=== PATIENT | female | born 1995 | race Caucasian/White ===

== ENCOUNTER 2022-12-25 22:23 | Emergency (ER) | payer OTHER ==
[2022-12-25] MEDS ORDERED: HYDROCODONE/APAP 10/325 TAB ONE (23:22)
[2022-12-25] MEDS ORDERED: IBUPROFEN 400 MG TAB ONE (23:22)
[2022-12-26] MEDS ORDERED: MORPHINE 2 MG/ML SYR ONE (00:25)
[2022-12-26] MEDS ORDERED: MORPHINE 4 MG/ML SYR ONE (00:26)
--- NOTE | 2022-12-26 00:50 | ER ---
Nurse's Notes [facility] Name: Laverne Mueller Age: 27 yrs Sex: Female : 1995 Arrival Date: 12/25/2022 Time: 22:23 Bed 4 Private MD: Diagnosis: Pain in right leg;Pain in right ankle and joints of right foot Presentation: 12/25 22:58 Chief complaint: Patient states: I have a metal plate in my right leg that was placed 6 kd3 years ago. Last night it started to hurt and has progressively gotten worse and gone up my leg to my right thigh. I do not think i have injured it in any way. Coronavirus screen: Vaccine status: Patient reports receiving the 2nd dose of the covid vaccine. Ebola Screen: No symptoms or risks identified at this time. Initial Sepsis Screen: Does the patient meet any 2 criteria? No. Patient's initial sepsis screen is negative. Does the patient have a suspected source of infection? No. Patient's initial sepsis screen is negative. Risk Assessment: Do you want to hurt yourself or someone else? Patient reports no desire to harm self or others. Onset of symptoms was December 25, 2022. 22:58 Method Of Arrival: Wheelchair kd3 22:58 Acuity: MAURIZIO 3 kd3 Triage Assessment: 23:00 General: Appears uncomfortable, Behavior is calm, cooperative. Pain: Complains of pain kd3 in right leg. 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 - Social history:: Smoking status: Patient denies any tobacco usage or history of. Screenin:11 [facility] ED Fall Risk Assessment (Adult) History of falling in the last 3 months, jj7 including since admission No falls in past 3 months (0 pts). [facility] ED Fall Risk Assessment (Adult) Confusion or Disorientation No (0 pts) Intoxicated or Sedated No (0 pts) Impaired Gait No (0 pts) Mobility Assist Device Used No (0 pt) Altered Elimination No (0 pt) Score/Fall Risk Level 0 - 2 = Low Risk Oriented to surroundings, Maintained a safe environment. Abuse screen: Denies threats or abuse. Nutritional screening: No deficits noted. Tuberculosis screening: No symptoms or risk factors identified. Assessment: 23:11 General: Appears in no apparent distress. uncomfortable, Behavior is calm, cooperative, jj7 appropriate for age, crying. Musculoskeletal: Reports pain in right leg. 12/26 00:23 Pain: Complains of pain in right leg Pain currently is 10 out of 10 on a pain scale. lg3 Noted to be crying, grimacing, resistant to movement. 01:19 General:. General: pt began vomiting clear bile on ambulation. provider notified. . lg3 Vital Signs: 12/25 22:58 BP 105 / 74; Pulse 94; Resp 16; Temp 98.5(O); Pulse Ox 98% on R/A; Weight 64.41 kg; kd3 Height 5 ft. 3 in. ; 12/26 00:24 BP 126 / 99; Pulse 90; Resp 17 S; Pulse Ox 99% on R/A; lg3 01:11 BP 102 / 68; Pulse 89; Resp 16; Pulse Ox 100% ; Pain 0/10; jj7 12/25 22:58 Body Mass Index 25.15 (64.41 kg, 160.02 cm) kd3 01:11 Pain Scale: Adult jj7 ED Course: 12/25 22:27 Patient arrived in ED. kj1 22:29 Garry Mayfield PA is PHCP. cp 22:29 Oswald Henderson MD is Attending Physician. cp 23:00 Triage completed. kd3 23:00 Arm band placed on left wrist. kd3 23:11 Bed in low position. Call light in reach. Adult w/ patient. Warm blanket given. jj7 23:50 XRAY Tib Fib RIGHT In Process Unspecified. EDMS 23:50 XRAY Foot RIGHT 3 View In Process Unspecified. EDMS 12/26 00:05 US Extremity Venous Unilateral Ltd In Process Unspecified. EDMS 01:12 No provider procedures requiring assistance completed. Patient did not have IV access jj7 during this emergency room visit. Administered Medications: 12/25 23:17 Drug: HYDROcodone-acetaminophen PO 10 mg-325 mg 1 tabs Route: PO; jj7 12/26 00:23 Follow up: Response: Pain is unchanged, physician notified jj7 12/25 23:17 Drug: Ibuprofen PO 800 mg Route: PO; jj7 12/26 00:23 Follow up: Response: No change in condition; Pain is unchanged, physician notified jj7 00:23 Drug: morphine IM 6 mg Route: IM; Site: left deltoid; lg3 01:10 Follow up: Response: Pain is decreased j 01:19 Drug: Ondansetron PO 4 mg Route: PO; lg3 01:19 Follow up: Response: No adverse reaction; Marked relief of symptoms; Vomiting decreased lg3 Medication: 12/25 23:11 VIS not applicable for this client. jj7 Outcome: 12/26 00:49 Discharge ordered by . cp 01:22 Discharged to home via wheelchair, with significant other. j7 01:22 Condition: improved 01:22 Discharge instructions given to patient, family, Instructed on discharge instructions, follow up and referral plans. medication usage, Demonstrated understanding of instructions, follow-up care, medications, Prescriptions given X 01:24 Patient left the ED. jj7 Signatures: Dispatcher [employer] EDMS Garyr Mayfield PA PA Lashonda Gordon kj1 Iwona Castro, RN RN lg3 Caryl Kim RN RN kd3 Hector Hernandez RN RN jj7
--- NOTE | 2022-12-26 00:50 | EDPHYS ---
Physician Documentation [facility] Name: Laverne Mueller Age: 27 yrs Sex: Female : 1995 Arrival Date: 12/25/2022 Time: 22:23 Bed 4 Private MD: ED Physician Oswald Henderson HPI: 12/25 23:00 This 27 yrs old Female presents to ER via Wheelchair with complaints of Leg Pain, Leg cp Swelling. 23:00 The patient presents with pain, that is acute, tenderness. The complaints affect the cp right lower leg and right ankle and right foot. 23:00 Context: resulted from an unknown cause, the patient can fully bear weight, the patient cp is able to ambulate, with moderate difficulty, Problem is a result from a previous injury: Yes. fracture with surgical repair and placement metal hardware 6 years ago. Onset: The symptoms/episode began/occurred last night, and became worse today. 23:00 Associated signs and symptoms: The patient has no apparent associated signs or cp symptoms. Severity of symptoms: in the emergency department the symptoms are unchanged, despite home interventions. 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 - Social history:: Smoking status: Patient denies any tobacco usage or history of. ROS: 23:05 Constitutional: Negative for body aches, chills, fever, poor PO intake. cp 23:05 Eyes: Negative for injury, pain, redness, and discharge. cp 23:05 Neck: Negative for pain with movement, pain at rest, stiffness. 23:05 Cardiovascular: Negative for chest pain, edema, palpitations. 23:05 Respiratory: Negative for cough, shortness of breath, wheezing. 23:05 Abdomen/GI: Negative for abdominal pain, nausea, vomiting, and diarrhea. 23:05 Back: Negative for pain at rest, pain with movement. 23:05 MS/extremity: Positive for pain, of the right lower leg and right ankle and right foot, Negative for paresthesias, recent injury. 23:05 Neuro: Negative for altered mental status, dizziness, headache, weakness. 23:05 All other systems are negative. Exam: 23:10 Constitutional: The patient appears in no acute distress, alert, awake, cp non-diaphoretic, non-toxic, well developed, well nourished, in obvious pain, uncomfortable. 23:10 Head/Face: Normocephalic, atraumatic. cp 23:10 Neck: ROM/movement: is normal, is supple, without pain, no range of motions limitations. 23:10 Chest/axilla: Inspection: normal. 23:10 Cardiovascular: Rate: normal, Pulses: Pulses are 2+ in right dorsalis pedis artery. 23:10 Respiratory: the patient does not display signs of respiratory distress, Respirations: normal, no use of accessory muscles, no retractions, labored breathing, is not present. 23:10 Abdomen/GI: Exam negative for discomfort, distension, guarding, Inspection: abdomen appears normal. 23:10 Back: pain, is absent, ROM is normal. 23:10 Musculoskeletal/extremity: Extremities: grossly normal except: noted in the right lower leg and right ankle: well healed surgical scar noted, mild swelling, marked tenderness to palpation, skin warn/dry, ROM: limited passive range of motion due to pain, in the right ankle, the right lower leg and right ankle and right foot Sensation intact. pain 23:10 Skin: cellulitis, is not appreciated, no rash present. Vital Signs: 22:58 BP 105 / 74; Pulse 94; Resp 16; Temp 98.5(O); Pulse Ox 98% on R/A; Weight 64.41 kg; kd3 Height 5 ft. 3 in. ; 08 00:24 BP 126 / 99; Pulse 90; Resp 17 S; Pulse Ox 99% on R/A; lg3 01:11 BP 102 / 68; Pulse 89; Resp 16; Pulse Ox 100% ; Pain 0/10; jj7 12/25 22:58 Body Mass Index 25.15 (64.41 kg, 160.02 cm) kd3 01:11 Pain Scale: Adult jj7 MDM: 12/25 23:00 Differential diagnosis: closed fracture, compartment syndrome, cellulitis, DVT. 23:06 Patient medically screened. 12/26 00:48 Data reviewed: vital signs, nurses notes, radiologic studies, plain films, ultrasound. 00:48 I considered the following discharge prescriptions or medication management in the emergency department Medications were administered in the Emergency Department. See MAR. Counseling: I had a detailed discussion with the patient and/or guardian regarding: the historical points, exam findings, and any diagnostic results supporting the discharge/admit diagnosis, radiology results, to return to the emergency department if symptoms worsen or persist or if there are any questions or concerns that arise at home. Response to treatment: the patient's symptoms have markedly improved after treatment, and as a result, I will discharge patient. 12/25 22:47 Order name: XRAY Tib Fib RIGHT cp 12/25 22:47 Order name: XRAY Foot RIGHT 3 View cp 12/25 22:47 Order name: US Extremity Venous Unilateral Ltd cp 12/26 00:30 Order name: Crutches; Complete Time: 01:10 cp 12/26 00:30 Order name: Solomon Wrap; Complete Time: 01:10 cp 12/26 00:48 Order name: Walking boot; Complete Time: 01:10 cp Administered Medications: 12/25 23:17 Drug: HYDROcodone-acetaminophen PO 10 mg-325 mg 1 tabs Route: PO; j7 12/26 00:23 Follow up: Response: Pain is unchanged, physician notified j7 12/25 23:17 Drug: Ibuprofen PO 800 mg Route: PO; j7 12/26 00:23 Follow up: Response: No change in condition; Pain is unchanged, physician notified j7 00:23 Drug: morphine IM 6 mg Route: IM; Site: left deltoid; lg3 01:10 Follow up: Response: Pain is decreased 7 01:19 Drug: Ondansetron PO 4 mg Route: PO; lg3 01:19 Follow up: Response: No adverse reaction; Marked relief of symptoms; Vomiting decreased lg3 Disposition Summary: 12/26/22 00:49 Discharge Ordered Location: Home cp Problem: new cp Symptoms: have improved cp Condition: Stable cp Diagnosis - Pain in right leg cp - Pain in right ankle and joints of right foot cp Followup: cp - With: Private Physician - When: 2 - 3 days - Reason: Recheck today's complaints Discharge Instructions: - Discharge Summary Sheet cp - Elastic Bandage and RICE Therapy cp - Musculoskeletal Pain cp - Ankle Pain cp - Foot Pain cp Forms: - Medication Reconciliation Form cp - Thank You Letter cp - Antibiotic Education cp - Prescription Opioid Use cp Prescriptions: - Diclofenac Sodium 75 mg Oral Tablet Sustained Release - take 1 tablet by ORAL route 2 times per day; 30 tablet; Refills: 0, Product cp Selection Permitted Signatures: Dispatcher [employer] EDGarry Thacker PA PA cp Gibson, Lacie RN RN lg3 Caryl Kim RN RN kd3 Hector Hernandez RN RN jj7
[2022-12-26] MEDS ORDERED: ONDANSETRON 4 MG (ODT) TAB ONE (01:20)
[2022-12-26 02:08] VITALS: TEMP 98.5
[2022-12-26 02:12] VITALS: BP 102/68; O2SAT 100
--- NOTE | 2022-12-26 14:49 | RAD REPORT ---
EXAM DESCRIPTION: US - Extremity Venous Uni Ltd - 12/26/2022 12:01 am CLINICAL HISTORY: 27 years, Female, PAIN Extremity Venous Uni Ltd COMPARISON: None. FINDINGS: Multiple grayscale images as well as duplex Doppler ultrasound (color and spectral analysi s) of the right lower extremity were performed. Right common femoral vein, right superficial femoral vein, right popliteal vein, right posterior tibi al vein at the level of the calf and ankle were imaged. Spectral waveform demonstrate normal compre ssibility, phasicity and augmentation. No intraluminal defects were seen. IMPRESSION: No sonographic evidence of deep venous thrombosis. Electronically signed by: Francis Espinoza MD 12/26/2022 12:20 AM CDT Due to temporary technical issues with the PACS/Fluency reporting system, reports are being signed by the in house radiologists without review as a courtesy to insure prompt reporting. The interpreting radiologist is fully responsible for the content of the report.
--- NOTE | 2022-12-26 15:19 | RAD REPORT ---
EXAM DESCRIPTION: RAD - Foot Right 3 View - 12/25/2022 11:48 pm CLINICAL HISTORY: 27 years Female PAIN TECHNIQUE: 3 views of the right foot. COMPARISON: No prior exams provided for comparison. FINDINGS: Postsurgical changes in the distal tibia. No acute right foot fracture, dislocation, or ev idence of avascular necrosis. Visualized joint spaces are preserved. No foreign body or aggressive os seous lesion. IMPRESSION: No acute findings the right foot. Electronically signed by: Laurie Gamboa MD 12/26/2022 12:02 AM CDT Due to temporary technical issues with the PACS/Fluency reporting system, reports are being signed by the in house radiologists without review as a courtesy to insure prompt reporting. The interpreting radiologist is fully responsible for the content of the report.
--- NOTE | 2022-12-26 15:28 | RAD REPORT ---
EXAM DESCRIPTION: RAD - Tib Fib Right - 12/25/2022 11:48 pm CLINICAL HISTORY: 27 years Female PAIN TECHNIQUE: 2 views of the right lower leg are provided. COMPARISON: No prior exams provided for comparison. FINDINGS: Prior open reduction internal fixation of a now-healed distal tibial fracture utilizing a lateral plate held in place by multiple screws. No evidence of hardware failure. There is no acute right lower leg fracture. Visualized joint spaces are preserved. No aggressive osse ous lesion. IMPRESSION: No acute findings in the right tibia/fibula. Electronically signed by: Laurie Gamboa MD 12/26/2022 12:01 AM CDT Due to temporary technical issues with the PACS/Fluency reporting system, reports are being signed by the in house radiologists without review as a courtesy to insure prompt reporting. The interpreting radiologist is fully responsible for the content of the report.
== END 2022-12-26 01:24 | disposition home or self-care (01) ==
LOC: ER 22:23
DX: M25.571 Pain in right ankle and joints of right foot (principal)
CPT/HCPCS: 73630; 73590; 93971; 96372; 99284; Q0162; J2270

== ENCOUNTER 2023-06-27 19:06 | Emergency (ER) | payer OTHER ==
[2023-06-27 20:07] LABS: Specific Gravity 1.027 (1.005-1.030)
[2023-06-27 20:12] LABS: Specific Gravity 1.027 (1.005-1.030); Urine Bacteria <20 /HPF (<20); Urine Bilirubin NEGATIVE (Negative); Urine Blood 1+ (Negative); Urine Clarity Clear (Clear); Urine Color Light-Yellow (Yellow); Urine Glucose NEGATIVE (Negative); Urine Mucus Slight /HPF (None Seen); Urine Protein NEGATIVE (Negative); Urine RBC <5 /HPF (None Seen); Urine Urobilinogen Normal (Normal); Urine pH 5.5 (5.0-7.0)
[2023-06-27] MEDS ORDERED: HYDROCODONE/CHLORPHEN 5 ML/OSYR ONE (20:59)
[2023-06-27] MEDS ORDERED: ACETAMINOPHEN 325 MG TABLET ONE (21:00)
--- NOTE | 2023-06-27 22:05 | ER ---
Nurse's Notes [facility] Name: Laverne Mueller Age: 28 yrs Sex: Female : 1995 Arrival Date: 06/27/2023 Time: 19:06 Bed 19 Private MD: Diagnosis: SARS-associated coronavirus as the cause of diseases classified elsewhere Presentation: 06/27 19:36 Chief complaint: Patient states: My throat feels very swollen and i have a terrible kd3 cough that has come on and gotten worse very quickly today. And i also have painful kidneys and pain in my legs. I have been around someone who had the flu. Coronavirus screen: Vaccine status: Patient reports receiving the 2nd dose of the covid vaccine. Ebola Screen: No symptoms or risks identified at this time. Initial Sepsis Screen: Does the patient meet any 2 criteria? No. Patient's initial sepsis screen is negative. Does the patient have a suspected source of infection? No. Patient's initial sepsis screen is negative. Risk Assessment: Do you want to hurt yourself or someone else? Patient reports no desire to harm self or others. Onset of symptoms was June 27, 2023. 19:36 Method Of Arrival: Ambulatory kd3 19:36 Acuity: MAURIZIO 4 kd3 Triage Assessment: 19:38 General: Appears in no apparent distress. Behavior is calm, cooperative. Pain: kd3 Complains of pain in headache. 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 - Social history:: Smoking status: Patient denies any tobacco usage or history of. Screenin:00 [facility] ED Fall Risk Assessment (Adult) History of falling in the last 3 months, ha1 including since admission No falls in past 3 months (0 pts) Confusion or Disorientation No (0 pts) Intoxicated or Sedated No (0 pts) Impaired Gait No (0 pts) Mobility Assist Device Used No (0 pt) Altered Elimination No (0 pt) Score/Fall Risk Level 0 - 2 = Low Risk Oriented to surroundings, Maintained a safe environment, Educated pt \T\ family on fall prevention, incl call for assistance when getting out of bed, Hourly rounding (assess needs \T\ fall precautionary measures) done. Abuse screen: Denies threats or abuse. Denies injuries from another. Nutritional screening: No deficits noted. Tuberculosis screening: No symptoms or risk factors identified. Assessment: 19:50 General: Appears uncomfortable, Behavior is calm, cooperative. Pain: Complains of pain ha1 in sore throat Pain does not radiate. Pain currently is 4 out of 10 on a pain scale. Neuro: Level of Consciousness is awake, alert, obeys commands, Oriented to person, place, time, situation. Cardiovascular: Capillary refill < 3 seconds Patient's skin is warm and dry. Respiratory: Airway is patent Respiratory effort is even, unlabored, Respiratory pattern is regular, symmetrical. Respiratory: Reports cough that is non-productive, runny nose. GI: No signs and/or symptoms were reported involving the gastrointestinal system. Abdomen is flat, non-distended. 21:00 Reassessment: Patient and/or family updated on plan of care and expected duration. Pain ha1 level reassessed. Patient is alert, oriented x 3, equal unlabored respirations, skin warm/dry/pink. Patient states feeling better. Patient states symptoms have improved. Vital Signs: 19:35 BP 100 / 67; Pulse 108; Resp 16; Temp 98.8(O); Pulse Ox 95% on R/A; Weight 66.68 kg; kd3 Height 5 ft. 3 in. ; 20:00 BP 104 / 70; Pulse 105; Resp 16; Pulse Ox 97% on R/A; km8 20:30 BP 99 / 61; Pulse 107; Resp 16; Pulse Ox 98% on R/A; km8 21:00 BP 115 / 72; Pulse 99; Resp 16; Pulse Ox 98% on R/A; km8 19:35 Body Mass Index 26.04 (66.68 kg, 160.02 cm) kd3 ED Course: 19:23 Patient arrived in ED. gm2 19:26 Garry Mayfield PA is PHCP. cp 19:26 Jaylen Billings MD is Attending Physician. cp 19:38 Triage completed. kd3 19:38 Arm band placed on right wrist. kd3 19:39 Patient has correct armband on for positive identification. Placed in gown. Bed in low ha1 position. Call light in reach. Side rails up X 1. Adult w/ patient. 21:43 Veena Falk, RN is Primary Nurse. ha1 22:35 No provider procedures requiring assistance completed. Patient did not have IV access ha1 during this emergency room visit. 22:36 Provided Education on: medication administration . ha1 Administered Medications: 20:48 Drug: Acetaminophen PO 650 mg PO once Route: PO; ha1 22:36 Follow up: Response: No adverse reaction; Pain is decreased ha1 20:48 Drug: Tussionex Pennkinetic ER PO Suspension 5 ml PO once Route: PO; ha1 22:36 Follow up: Response: No adverse reaction ha1 Medication: 22:35 VIS not applicable for this client. ha1 Outcome: 22:05 Discharge ordered by . cp 22:35 Discharged to home ambulatory, with family, ha1 22:35 Condition: stable 22:35 Discharge instructions given to patient, family, Instructed on discharge instructions, follow up and referral plans. medication usage, Demonstrated understanding of instructions, follow-up care, medications, Prescriptions given X 3, 22:36 Patient left the ED. ha1 Signatures: Garry Mayfield PA PA cp Doucette, Kyli, RN RN kd3 Veena Falk, RN RN ha1 Mira Jeffries 2 Carola Mcintyre RN RN km8
--- NOTE | 2023-06-27 22:06 | EDPHYS ---
Physician Documentation [facility] Name: Laverne Mueller Age: 28 yrs Sex: Female : 1995 Arrival Date: 06/27/2023 Time: 19:06 Bed 19 Private MD: ED Physician Jaylen Billings HPI: 06/27 20:00 This 28 yrs old Female presents to ER via Ambulatory with complaints of Flu Symptoms. cp 20:00 The patient or guardian reports cough, that is intermittent, with no sputum. Onset: The cp symptoms/episode began/occurred today. 20:00 Associated signs and symptoms: Pertinent positives: chest pain, with cough, fever, sore cp throat, back ache, leg pain, Pertinent negatives: diarrhea, vomiting. Severity of symptoms: in the emergency department the symptoms are unchanged despite home interventions. [employer]: 19:35 unknown kd3 Historical: - Allergies: 19:38 Azithromycin; kd3 - Home Meds: 19:38 None [Active]; kd3 - Immunization history:: Adult Immunizations up to date. - Social history:: Smoking status: Patient denies any tobacco usage or history of. ROS: 20:05 Constitutional: Positive for body aches, Negative for fever, poor PO intake, cp 20:05 Eyes: Negative for injury, pain, redness, and discharge, cp 20:05 ENT: Positive for sore throat, Negative for drainage from ear(s), ear pain, difficulty swallowing, difficulty handling secretions, 20:05 Cardiovascular: Positive for chest pain, with cough, 20:05 Respiratory: Positive for cough, Negative for shortness of breath, wheezing, 20:05 Abdomen/GI: Negative for abdominal pain, vomiting, diarrhea, constipation, 20:05 Skin: Negative for rash, 20:05 Neuro: Positive for headache, Negative for altered mental status, weakness, 20:05 All other systems are negative, Exam: 20:10 Constitutional: The patient appears in no acute distress, alert, awake, non-toxic, well cp developed, well nourished, 20:10 Head/Face: Normocephalic, atraumatic. cp 20:10 Eyes: Periorbital structures: appear normal, Conjunctiva: normal, no exudate, no injection, Sclera: no appreciated abnormality, Lids and lashes: appear normal, bilaterally, 20:10 ENT: External ear(s): are unremarkable, Ear canal(s): are normal, clear, TM's: dullness, bilaterally, Nose: is normal, Mouth: Lips: moist, Oral mucosa: pink and intact, moist, Posterior pharynx: Airway: no evidence of obstruction, patent, Tonsils: with erythema, no enlargement, no exudate, erythema, that is moderate, exudate, is not appreciated, 20:10 Neck: ROM/movement: is normal, is supple, no meningismus, no nuchal rigidity, 20:10 Chest/axilla: Inspection: normal, 20:10 Cardiovascular: Rate: tachycardic, Rhythm: regular, 20:10 Respiratory: the patient does not display signs of respiratory distress, Respirations: normal, no use of accessory muscles, no retractions, labored breathing, is not present, Breath sounds: are clear throughout, no decreased breath sounds, no stridor, no wheezing, 20:10 Abdomen/GI: Inspection: abdomen appears normal, Palpation: abdomen is soft and non-tender, in all quadrants, 20:10 Back: CVA tenderness, is absent, 20:10 Skin: no rash present. Vital Signs: 19:35 BP 100 / 67; Pulse 108; Resp 16; Temp 98.8(O); Pulse Ox 95% on R/A; Weight 66.68 kg; kd3 Height 5 ft. 3 in. ; 20:00 BP 104 / 70; Pulse 105; Resp 16; Pulse Ox 97% on R/A; km8 20:30 BP 99 / 61; Pulse 107; Resp 16; Pulse Ox 98% on R/A; km8 21:00 BP 115 / 72; Pulse 99; Resp 16; Pulse Ox 98% on R/A; km8 19:35 Body Mass Index 26.04 (66.68 kg, 160.02 cm) kd3 MDM: 19:45 Patient medically screened. cp 22:05 Data reviewed: vital signs, nurses notes, lab test result(s). cp 22:05 Differential diagnosis: bronchitis, flu, strep throat, COVID-19. Antibiotic cp administration: Not indicated, the patient has a suspected viral illness. I considered the following discharge prescriptions or medication management in the emergency department Medications were administered in the Emergency Department. See MAR. Counseling: I had a detailed discussion with the patient and/or guardian regarding the historical points, exam findings, and any diagnostic results supporting the discharge/admit diagnosis, lab results, to return to the emergency department if symptoms worsen or persist or if there are any questions or concerns that arise at home. Response to treatment: the patient's symptoms have markedly improved after treatment, and as a result, I will discharge patient. 06/27 19:40 Order name: COVID-19 SARS RT PCR; Complete Time: 21:26 kd3 06/27 21:27 Interpretation: Reviewed. cp 06/27 19:40 Order name: Flu; Complete Time: 20:13 kd3 06/27 21:43 Interpretation: Reviewed. 06/27 19:40 Order name: Strep; Complete Time: 21:26 kd3 06/27 21:26 Interpretation: Reviewed. 06/27 19:46 Order name: Urinalysis W/Microscopic; Complete Time: 20:13 cp 06/27 19:46 Order name: PREGU; Complete Time: 20:13 06/27 20:06 Order name: Throat Culture EDMS Administered Medications: 20:48 Drug: Acetaminophen PO 650 mg PO once Route: PO; ha1 22:36 Follow up: Response: No adverse reaction; Pain is decreased ha1 20:48 Drug: Tussionex Pennkinetic ER PO Suspension 5 ml PO once Route: PO; ha1 22:36 Follow up: Response: No adverse reaction ha1 Disposition: 06/28 19:34 Co-signature as Attending Physician, Jaylen Billings MD I reviewed the patient's care rt provided by the Advanced Practice Provider and agree with the diagnosis and treatment plan. Disposition Summary: 06/27/23 22:05 Discharge Ordered Notes: Location: Home cp Problem: new cp Symptoms: have improved cp Condition: Stable cp Diagnosis - SARS-associated coronavirus as the cause of diseases classified elsewhere cp Followup: cp - With: Private Physician - When: 2 - 3 days - Reason: Worsening of condition Discharge Instructions: - Discharge Summary Sheet cp - Aspirin and Your Heart cp - Form - Excuse from Work, School, or Physical Activity cp - COVID-19 cp - How to Protect Yourself and Others - [facility] (09/14/2021) cp - 10 Things You Can Do to Manage Your COVID-19 Symptoms at Home - [facility] (02/02/2021) cp - COVID-19: Quarantine and Isolation - [facility] (10/17/2021) cp - COVID-19: What to Do If You Are Sick - [facility] (10/09/2021) cp Forms: - Medication Reconciliation Form cp - Thank You Letter cp - Antibiotic Education cp - Prescription Opioid Use cp - Patient Portal Instructions cp - Leadership Thank You Letter cp Prescriptions: - Bromfed DM 2-30-10 mg/5 mL Oral syrup - administer 10 milliliter ORAL route every 6 hours as needed for cold symptoms; cp 240 milliliter; Refills: 0, Product Selection Permitted - Paxlovid 300 mg (150 mg x 2)-100 mg Oral Tablet, Dose Pack - take 1 dose pack ORAL route as directed on dose pack take TWO 150 mg tablets of cp nirmatrelvir with ONE 100 mg tablet of ritonavir twice daily for 5 days; 30 tablet; Refills: 0, Product Selection Permitted - Ibuprofen 800 mg Oral Tablet - take 1 tablet ORAL route every 8 hours As needed take with food; 30 tablet; cp Refills: 0, Product Selection Permitted Signatures: Dispatcher [employer] EDMS Garry Mayfield PA PA cp Doucette, Kyli, RN RN kd3 Veena Falk RN RN ha1 Jaylen Billings MD MD rt Corrections: (The following items were deleted from the chart) 07:05 06/27 20:00 Onset: The symptoms/episode began/occurred yesterday, cp cp 06/28 07:05 12 20:00 Associated signs and symptoms: Pertinent positives: chest pain, with cough, cp fever, sore throat, Pertinent negatives: diarrhea, vomiting, cp
[2023-06-27 22:41] VITALS: TEMP 98.8
[2023-06-27 22:43] VITALS: O2SAT 98
[2023-06-27 22:45] VITALS: BP 115/72
== END 2023-06-27 22:36 | disposition home or self-care (01) ==
LOC: ER 19:06
DX: U07.1 COVID-19 (principal); Z88.1 Allergy status to other antibiotic agents
CPT/HCPCS: 81001; 81025; 87070; 87081; 87635; 87804; 99283

== ENCOUNTER 2024-07-01 11:40 | Emergency (ER) | payer BC, OTHER ==
[2024-07-01] MEDS ORDERED: ONDANSETRON 4 MG/2 ML VIAL ONE (12:14)
[2024-07-01] MEDS ORDERED: NA CHLORIDE 0.9% 500 ML ONE (12:14)
[2024-07-01 12:29] LABS: Absolute Eosinophils 0.1 K/uL (0-0.5); Absolute Lymphocytes (CBC) 1.2 K/uL (0.7-4.9); Absolute Monocytes 0.4 K/uL (0.1-1.3); Absolute Neutrophil 2.8 K/uL (1.8-8.0); Basophils % 0.7 % (0-1.3); Eosinophils % 1.3 % (0-4.4); Hematocrit 39.1 % (36.0-45.0); Hemoglobin 13.1 g/dL (12.0-15.0); Lymphocytes % 27.3 % (15.3-44.8); MCH 28.9 pg (27.0-35.0); MCHC 33.4 g/dL (32.0-36.0); MCV 86.5 fL (80-100); MPV 7.7 fL (7.6-11.3); Monocytes % 8.7 % (3.3-12.3); Platelets 326 thou/uL (152-406); RBC Red Blood Cell Count 4.52 M/uL (3.86-4.86); Red Cell Distribution Width 13.4 % (12.1-15.2)
[2024-07-01 12:49] LABS: Albumin/Globulin Ratio 1.1 (1.1-1.8); Anion Gap 7.7 mEq/L (5.0-15.0); Bilirubin Total 0.6 mg/dL (0.2-1.0); Globulin 3.6 g/dL (2.3-3.5); Potassium 2.7 mEq/L (3.5-5.1); Protein, Total 7.6 g/dL (6.4-8.2)
[2024-07-01 12:51] LABS: SARS-CoV-2 Antigen CONTROL BLUE LINE VIS/BG OK; SARS-CoV-2 Antigen Rapid Res Negative (Negative)
[2024-07-01] MEDS ORDERED: KETOROLAC 30 MG/ML INJ ONE (14:26)
--- NOTE | 2024-07-01 15:16 | ER ---
Nurse's Notes [facility] Name: Laverne Mueller Age: 29 yrs Sex: Female : 1995 Arrival Date: 07/01/2024 Time: 11:40 Bed 5 Private MD: Diagnosis: Hypokalemia;Lower abdominal pain, unspecified;Weakness Presentation: 07/01 11:58 Chief complaint: Patient states: she has been having a loss of appetite for approx 18 ap3 days with pain in her abdomen. patient report it feels like her insides are pulsing. patient reports her pain as an 8/10 on the pain scale. patient reports recent weight loss. . Coronavirus screen: At this time, the client does not indicate any symptoms associated with coronavirus-19. Ebola Screen: No symptoms or risks identified at this time. Initial Sepsis Screen: Does the patient meet any 2 criteria? HR > 90 bpm. Does the patient have a suspected source of infection? No. Patient's initial sepsis screen is negative. Risk Assessment: Do you want to hurt yourself or someone else? Patient reports no desire to harm self or others. Onset of symptoms is unknown. 11:58 Method Of Arrival: Ambulatory ap3 11:58 Acuity: MAURIZIO 3 ap3 Triage Assessment: 12:10 General: Appears in no apparent distress. uncomfortable, Behavior is calm, cooperative. rs5 GI: Abdomen is round non-distended. 12:10 Pain: Complains of pain in abdomen. rs5 Historical: - Allergies: 12:03 Azithromycin; ap3 - PMHx: 14:27 None; aa5 - Immunization history:: Client reports receiving the 2nd dose of the Covid vaccine, Flu vaccine is up to date. - Infectious Disease History:: Denies. - Social history:: Smoking status: Patient denies any tobacco usage or history of. Screenin:04 Abuse screen: Denies threats or abuse. Nutritional screening: Had unintentional weight ap3 loss of 10 pounds or more. Tuberculosis screening: No symptoms or risk factors identified. 12:04 [facility] ED Fall Risk Assessment (Adult) History of falling in the last 3 months, ap3 including since admission No falls in past 3 months (0 pts) Confusion or Disorientation No (0 pts) Intoxicated or Sedated No (0 pts) Impaired Gait No (0 pts) Mobility Assist Device Used No (0 pt) Altered Elimination No (0 pt) Score/Fall Risk Level 0 - 2 = Low Risk Oriented to surroundings, Maintained a safe environment, Educated pt \T\ family on fall prevention, incl call for assistance when getting out of bed, Assessed \T\ reinforced patient's understanding of fall precautions, Hourly rounding (assess needs \T\ fall precautionary measures) done, Used ambulatory aids as needed (educated on \T\ assisted with), Used gait belt as appropriate. Assessment: 12:15 General: Appears uncomfortable, Behavior is calm, cooperative. Pain: Complains of pain aa5 in right upper quadrant, left upper quadrant, right lower quadrant and left lower quadrant Pain does not radiate. Pain currently is 8 out of 10 on a pain scale. Quality of pain is described as aching, crampy, Is intermittent. Neuro: Level of Consciousness is awake, alert, obeys commands, Oriented to person, place, time, situation. Cardiovascular: Patient's skin is warm and dry. Respiratory: Airway is patent Respiratory effort is even, unlabored, Respiratory pattern is regular, symmetrical. GI: Abdomen is non-distended, Bowel sounds present X 4 quads. Abd is soft X 4 quads Abdomen is tender to palpation in right upper quadrant, left upper quadrant, right lower quadrant and left lower quadrant Reports nausea, decreased appetite and oral intake x 2 weeks ago Patient currently denies diarrhea, vomiting. : No signs and/or symptoms were reported regarding the genitourinary system. EENT: No signs and/or symptoms were reported regarding the EENT system. Derm: Skin is pink, warm \T\ dry. Musculoskeletal: Range of motion: intact in all extremities. 12:22 Reassessment: Patient is alert, oriented x 3, equal unlabored respirations, skin aa5 warm/dry/pink. 13:33 Reassessment: Patient is alert, oriented x 3, equal unlabored respirations, skin aa5 warm/dry/pink. Pt states she is unable to void at this time, MD was notified. . 14:27 Reassessment: Patient is alert, oriented x 3, equal unlabored respirations, skin aa5 warm/dry/pink. Pt states she remains unable to provide urine specimen and would like to go home now. MD notified. . 15:01 General: Appears in no apparent distress. uncomfortable, Behavior is calm, appropriate rs5 for age. Pain:. Pain: Complains of pain in abdomen. Neuro: Level of Consciousness is awake, alert, obeys commands, Oriented to person, place, time, situation. Cardiovascular: Patient's skin is warm and dry. Respiratory: Airway is patent Respiratory effort is even, unlabored, Respiratory pattern is regular, symmetrical. GI: GI: Abdomen is round non-distended, Abd is soft and non tender X 4 quads. : No signs and/or symptoms were reported regarding the genitourinary system. EENT: No signs and/or symptoms were reported regarding the EENT system. Derm: Skin is intact, Skin is pink, warm \T\ dry. Musculoskeletal: Range of motion: intact in all extremities. 15:22 Reassessment: Patient and/or family updated on plan of care and expected duration. Pain rs5 level reassessed. Patient is alert, oriented x 3, equal unlabored respirations, skin warm/dry/pink. Vital Signs: 11:58 BP 109 / 65; Pulse 112; Temp 98.7; Pulse Ox 96% ; Weight 51.71 kg; Height 5 ft. 2 in. ; ap3 Pain 8/10; 14:00 BP 110 / 62; Pulse 75; Resp 18 S; Pulse Ox 99% on R/A; aa5 14:25 Pulse 100; Pulse Ox 96% ; ec2 15:15 BP 112 / 61; Pulse 74; Resp 17; Temp 98.2(O); Pulse Ox 99% on R/A; rs5 11:58 Body Mass Index 20.85 (51.71 kg, 157.48 cm) ap3 11:58 Pain Scale: Adult ap3 ED Course: 11:43 Patient arrived in ED. sj2 11:44 Leeroy Mccabe MD is Attending Physician. ec2 12:00 No provider procedures requiring assistance completed. rs5 12:03 Triage completed. ap3 12:08 Jaylyn Rock, RN is Primary Nurse. aa5 12:15 Patient has correct armband on for positive identification. Bed in low position. Call aa5 light in reach. Side rails up X2. Pulse ox on. NIBP on. 12:18 COVID swab sent to lab. Flu and/or RSV swab sent to lab. aa5 12:20 Initial lab(s) drawn, by ri, sent to lab. Inserted saline lock: 22 gauge in right aa5 antecubital area, using aseptic technique. Blood collected. Flushed with 10 mL NS. 13:33 Warm blanket given. aa5 13:47 serum sent to lab. aa5 15:15 Provided Education on: discharge instructions . rs5 15:30 IV discontinued, intact, bleeding controlled, No redness/swelling at site. Pressure rs5 dressing applied. Administered Medications: 12:22 Drug: NS 0.9% IV 500 ml 500 ml IV at 1 bolus once; to be given as a bolus over 30 aa5 minutes Volume: 500 ml; Route: IV; Rate: 1 bolus; Site: right antecubital; 13:01 Follow up: Response: No adverse reaction; IV Status: Completed infusion; IV Intake: rs5 500ml 12:22 Drug: Ondansetron IVP 4 mg IVP once; over 2 minutes Route: IVP; Site: right antecubital;aa5 12:41 Follow up: Response: No adverse reaction; Nausea is decreased rs5 14:27 Drug: Ketorolac IVP 15 mg IVP once Route: IVP; Site: left antecubital; aa5 15:01 Follow up: Response: No adverse reaction; Pain is decreased rs5 Medication: 15:30 VIS not applicable for this client. rs5 Intake: 13:01 IV: 500ml; Total: 500ml. rs5 Outcome: 15:16 Discharge ordered by . ec2 15:30 Discharged to home ambulatory, rs5 15:30 Condition: stable rs5 15:30 Discharge instructions given to patient, family, Instructed on discharge instructions, follow up and referral plans. medication usage, Demonstrated understanding of instructions, follow-up care, medications, Prescriptions given X 3, 15:36 Patient left the ED. rs5 Signatures: Jaylyn Rock RN RN aa5 Neelam Medley RN RN ap3 Larry Franco RN RN rs5 Leeroy Mccabe MD MD ec2 Ankur Barrera2 Corrections: (The following items were deleted from the chart) 16:26 12:10 Pain: Denies pain. rs5 rs5 16:27 16:20 BP 112 / 61; Pulse 74bpm; Resp 17bpm; Pulse Ox 99% RA; Temp 98.2F Oral; rs5 rs5 17:14 14:27 Reassessment: Patient is alert, oriented x 3, equal unlabored respirations, skin aa5 warm/dry/pink. aa5
--- NOTE | 2024-07-01 15:16 | EDPHYS ---
Physician Documentation [facility] Name: Laverne Mueller Age: 29 yrs Sex: Female : 1995 Arrival Date: 07/01/2024 Time: 11:40 Bed 5 Private MD: ED Physician Leeroy Mccabe HPI: 07/01 12:12 This 29 yrs old Female presents to ER via Ambulatory with complaints of ec2 General Weakness, Abdominal Pain, Back Pain. 12:13 Patient arrives today for evaluation of generalized weakness, fatigue, abdominal pain. ec2 Reports symptoms been ongoing for multiple weeks. Reports decreased p.o. intake. Reports nausea, no vomiting, no diarrhea. Denies urinary complaints. LMP was approximately 2 months ago.. Historical: - Allergies: 12:03 Azithromycin; ap3 - PMHx: 14:27 None; aa5 - Immunization history:: Client reports receiving the 2nd dose of the Covid vaccine, Flu vaccine is up to date. - Infectious Disease History:: Denies. - Social history:: Smoking status: Patient denies any tobacco usage or history of. ROS: 12:13 Constitutional: as per hpi ec2 Exam: 12:13 Constitutional: GEN: NAD Head: atraumatic Eyes: EOMI Ears: External ears are ec2 normal. CV: Tachycardia LUNGS: no respiratory distress ABD: non-distended, soft, not guarding, not rigid, generally tender. Left CVA TTP. SKIN: no evidence of rashes MSK: no evidence of trauma Vital Signs: 11:58 BP 109 / 65; Pulse 112; Temp 98.7; Pulse Ox 96% ; Weight 51.71 kg; Height 5 ft. 2 in. ; ap3 Pain 8/10; 14:00 BP 110 / 62; Pulse 75; Resp 18 S; Pulse Ox 99% on R/A; aa5 14:25 Pulse 100; Pulse Ox 96% ; ec2 15:15 BP 112 / 61; Pulse 74; Resp 17; Temp 98.2(O); Pulse Ox 99% on R/A; rs5 11:58 Body Mass Index 20.85 (51.71 kg, 157.48 cm) ap3 11:58 Pain Scale: Adult ap3 MDM: 12:11 Medical Screening Exam initiated ec2 12:13 Data reviewed: vital signs, nurses notes. ED course: Patient arrives today for ec2 evaluation of abdominal pain, fatigue and feeling unwell. Examination is revealing for slight tachycardia with some abdominal TTP. Will obtain lab work, urine studies and treat the patient symptoms with crystalloid and Zofran.. 07/01 12:07 Order name: CBC with Diff; Complete Time: 12:54 ec2 07/01 12:07 Order name: CMP; Complete Time: 12:54 ec2 07/01 12:07 Order name: Lipase; Complete Time: 12:54 ec2 07/01 12:11 Order name: Influenza Screen (a \T\ B); Complete Time: 12:54 ec2 07/01 12:11 Order name: SARS RAPID; Complete Time: 12:54 ec2 07/01 12:07 Order name: IV Saline Lock; Complete Time: 12:22 ec2 07/01 12:07 Order name: Labs collected and sent; Complete Time: 12:22 ec2 07/01 12:11 Order name: NPO; Complete Time: 12:12 ec2 Administered Medications: 12:22 Drug: NS 0.9% IV 500 ml 500 ml IV at 1 bolus once; to be given as a bolus over 30 aa5 minutes Volume: 500 ml; Route: IV; Rate: 1 bolus; Site: right antecubital; 13:01 Follow up: Response: No adverse reaction; IV Status: Completed infusion; IV Intake: rs5 500ml 12:22 Drug: Ondansetron IVP 4 mg IVP once; over 2 minutes Route: IVP; Site: right antecubital;aa5 12:41 Follow up: Response: No adverse reaction; Nausea is decreased rs5 14:27 Drug: Ketorolac IVP 15 mg IVP once Route: IVP; Site: left antecubital; aa5 15:01 Follow up: Response: No adverse reaction; Pain is decreased rs5 Disposition Summary: 07/01/24 15:16 Discharge Ordered Notes: Location: Home ec2 Condition: Stable ec2 Diagnosis - Hypokalemia ec2 - Lower abdominal pain, unspecified ec2 - Weakness ec2 Followup: ec2 - With: Private Physician - When: - Reason: Re-evaluation by your physician Discharge Instructions: - Discharge Summary Sheet ec2 - Abdominal Pain, Adult ec2 Forms: - Medication Reconciliation Form ec2 - Antibiotic Education ec2 - Prescription Opioid Use ec2 - Patient Portal Instructions ec2 - Leadership Thank You Letter ec2 Prescriptions: - Zofran 4 mg Oral Tablet - take 1 tablet ORAL route every 12 hours As needed; 20 tablet; Refills: 0, ec2 Product Selection Permitted Signatures: Dispatcher [employer] Jaylyn Do, RN RN aa5 Neelam Medley RN RN ap3 Leeroy Mccabe MD MD ec2 Larry Franco RN rs5 Corrections: (The following items were deleted from the chart) 12:14 12:13 Constitutional: GEN: NAD Head: atraumatic Eyes: EOMI Ears: External ears are ec2 normal. CV: Tachycardia LUNGS: no respiratory distress ABD: non-distended, soft, not guarding, not rigid. Left CVA TTP. SKIN: no evidence of rashes MSK: no evidence of trauma ec2 13:35 13:35 TEST, SERUM+[id number].LAB.BRZ ordered. EDMS EDMS
[2024-07-01 16:32] VITALS: O2SAT 96
[2024-07-01 16:34] VITALS: BP 109/65; TEMP 98.7
== END 2024-07-01 15:36 | disposition home or self-care (01) ==
LOC: ER 11:40
DX: E87.6 Hypokalemia (principal); R53.1 Weakness; R10.30 Lower abdominal pain, unspecified; Z11.52 Encounter for screening for COVID-19
CPT/HCPCS: 85025; 36415; 83690; 80053; 87804 ×2; 99284; 87811; J2405; J7040